=== PATIENT | female | born 2000 | race Caucasian/White ===

== ENCOUNTER 2021-07-31 18:28 | Emergency (ER) | payer OTHER ==
[~2021-07-31] VITALS: Ht 146 cm; Wt 52.0 kg
--- NOTE | 2021-07-31 18:45 | ED General ---
General Chief Complaint: Glucose Problems Source of Information: Patient, Other (friend she lives with ) Exam Limitations: No Limitations History of Present Illness Date Seen by Provider: July 31, 2021 Time Seen by Provider: 18:31 Initial Comments Patient is a 20-year-old female who presents to the emergency room with a chief complaint of having her eyes looking upward into the right and neck spasms. She states onset of symptoms about 15 minutes prior to arrival. She presents with her roommate. She is never had anything like this before. She recently started Invega for anxiety 3 days ago. She takes it at night. She states she has a bit of a headache as her eyes are so far up and to the right. She is not nauseous. No recent illnesses such as fevers, chills, cough or congestion. She is not having any abdominal pain vomiting or diarrhea. No burning when she pees. She is on oral control and she does not recall when her last period was. She has not taken anything for this. As stated she has a history of anxiety and hypoglycemia. Bedside blood sugar is a little over 100 at this time. All other review of systems reviewed and negative except as stated. Timing/Duration: 1/2 Hour Severity: Severe Associated Systoms: Headaches Allergies and Home Medications Allergies Coded Allergies: latex (Verified Allergy, Mild, RASH , 07/31/21) Patient Home Medication List Home Medication List Reviewed: Yes Review of Systems Review of Systems Constitutional: see HPI EENTM: eye pain Respiratory: no symptoms reported Cardiovascular: no symptoms reported Gastrointestinal: no symptoms reported Genitourinary: no symptoms reported Musculoskeletal: muscle pain, neck pain Skin: no symptoms reported Psychiatric/Neurological: Anxiety All Other Systems Reviewed Negative Unless Noted: Yes Physical Exam Vital Signs Vital Signs - First Documented 07/31/21 18:35 Temp 36.4 Pulse 102 Resp 18 B/P (MAP) 102/66 (78) Pulse Ox 99 O2 Delivery Room Air Capillary Refill : Height, Weight, BMI Height: '" Weight: lbs. oz. kg; BMI Method: General Appearance: WD/WN, Anxious Eyes: Bilateral Eye Normal Inspection (pupils 4-5mm and deviated superiorly and to the right - she is unable to bring her gaze midline) HEENT: Pharynx Normal, Other (no abnormal toung movements) Neck: Non Tender, Supple, Other (spasms of bringing her head "back" neck extensioin and rotation of head to the right) Respiratory: Lungs Clear, Normal Breath Sounds, No Accessory Muscle Use Cardiovascular: Regular Rate, Rhythm, Normal Peripheral Pulses Gastrointestinal: Non Tender, Soft Extremity: Normal Inspection, Normal Range of Motion, Non Tender, No Calf Tenderness Neurologic/Psychiatric: Alert, Oriented x3, No Motor/Sensory Deficits, Other (anxious) Skin: Normal Color, Warm/Dry Progress/Results/Core Measures Suspected Sepsis SIRS Temperature: Pulse: Respiratory Rate: Blood Pressure / Mean: Results/Orders My Orders Orders - YVROSE EAGLE MD Benztropine Injection (Cogentin Injectio (07/31/21 18:47) Vital Signs/I&O 07/31/21 18:35 Temp 36.4 Pulse 102 Resp 18 B/P (MAP) 102/66 (78) Pulse Ox 99 O2 Delivery Room Air Capillary Refill : Progress Note : Time: 19:27 Progress Note Stacey feels much better about 30 minutes after the Cogentin dosing. I talked to her about taking this medication for a period of time until the Invega is out of her system. She verbalizes understanding. All questions are sought and answered. She is improved at discharge Departure Impression Primary Impression: Dystonic drug reaction Disposition: HOME, SELF-CARE Condition: Improved Departure-Patient Inst. Decision time for Depature: 19:33 Add. Discharge Instructions: Do not take any more of the Invega. Take the Cogentin 1mg 3 times a day for the next 2 days - the Invega should be out of your system in 24-48 hours. Come back to the Emergency Department if you have any return of or worsening symptoms. Follow up with your therapist on Thursday. Scripts Benztropine Mesylate (Benztropine Mesylate) 1 Mg Tablet 1 MG PO TID for 2 Days, #6 TAB Prov: YVROSE EAGLE MD 07/31/21 YVROSE EAGLE MD July 31, 2021 18:45
[2021-07-31] MEDS ORDERED: BENZTROPINE 2 MG/2 ML INJ (COGENTIN) AMP IV STA (18:47)
[2021-07-31] MEDS ORDERED: BENZ1TAB6 PO (19:38)
[2021-07-31 19:50] VITALS: BP 125/79
== END 2021-07-31 19:50 | disposition home or self-care (01) ==
LOC: ER 18:33
DX: G24.02 Drug induced acute dystonia (principal); F41.9 Anxiety disorder, unspecified; Z79.3 Long term (current) use of hormonal contraceptives; Z79.899 Other long term (current) drug therapy